=== PATIENT | female | born 1955 ===

== ENCOUNTER 2019-10-21 13:35 | Emergency (ER) | payer OTHER ==
[~2019-10-21] VITALS: Ht 175.3 cm; Wt 64.9 kg
[2019-10-21] MEDS ORDERED: Amoxicillin500 MG PO (13:51)
[2019-10-21] MEDS ORDERED: NAPR550 PO (13:51)
== END 2019-10-21 14:10 | disposition home or self-care (01) ==
LOC: ER 13:35
DX: K08.89 Other specified disorders of teeth and supporting structures (principal)
CPT/HCPCS: 99282; A9270-GY; J1885